=== PATIENT | male | born 1985 | race Caucasian/White ===

== ENCOUNTER 2020-11-22 22:53 | Emergency (ER) | payer OTHER ==
[~2020-11-22] VITALS: Ht 160 cm; Wt 57.2 kg
[2020-11-22 22:55] VITALS: BP 104/68
--- NOTE | 2020-11-22 22:55 | NUR ---
DINORAH UMAÑA TAKEN TO BED #11
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
--- NOTE | 2020-11-22 23:19 | NUR ---
[facility] AT BEDSIDE.
[2020-11-22] MEDS ORDERED: NACL 0.9% 1,000 ML IV ONE (23:20)
[2020-11-22] MEDS ORDERED: ONDANSETRON 4 MG/2 ML VIAL IVP ONE (23:20)
[2020-11-22] MEDS ORDERED: ONDANSETRON 4 MG/2 ML VIAL ONE (23:20)
[2020-11-22 23:37] LABS: BASOPHILS % (AUTO) 0.6 % (0.0-2.0); EOSINOPHILS # (AUTO) 0.2 K/uL (0-0.4); EOSINOPHILS % (AUTO) 3.2 % (0.0-4.0); HEMATOCRIT 44.9 % (36-52); HEMOGLOBIN 15.1 g/dL (12.0-18.0); LYMPHOCYTES # (AUTO) 2.1 K/uL (2.0-11.5); LYMPHOCYTES % (AUTO) 30.8 % (20.5-51.1); MEAN CORPUSCULAR HEMOGLOBIN 33 pg (27-31); MEAN CORPUSCULAR HGB CONC 34 g/dL (33-37); MEAN CORPUSCULAR VOLUME 96.9 fL (80-94); MONOCYTES # (AUTO) 0.4 K/uL (0.8-1.0); MONOCYTES % (AUTO) 5.7 % (1.7-9.3); NEUTROPHILS # (AUTO) 4.1 K/uL (1.8-7.7); NEUTROPHILS % (AUTO) 59.7 % (42.2-75.2); PLATELET COUNT (AUTO) 258 K/uL (140-450); RED BLOOD CELL COUNT(AUTO) 4.63 MIL/uL (4.20-6.10); RED CELL DISTRIBUTION WIDTH 13.4 % (11.6-13.7); WHITE BLOOD COUNT (AUTO) 6.9 K/uL (4.8-10.8)
--- NOTE | 2020-11-22 23:45 | NUR ---
PD TUTOR AT [facility] DRAWING BLOOD LEVELS WITH PERMISSION FROM PATIENT. PATIENT AROUSBLE TO TOUCH. 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 VSS.
[2020-11-22 23:53] LABS: ALBUMIN 3.9 g/dL (3.4-5.0); ANION GAP 14.7 (8-16); CARBON DIOXIDE 24.8 mmol/L (21-32); POTASSIUM 3.5 mmol/L (3.5-5.1); TOTAL BILIRUBIN 0.1 mg/dL (0.0-1.0)
--- NOTE | 2020-11-23 00:15 | NUR ---
PT TAKEN TO CT VIA [facility]
[2020-11-23] MEDS ORDERED: ONDANSETRON 4 MG/2 ML VIAL ONE ×2 (00:27→02:10)
[2020-11-23] MEDS ORDERED: ONDANSETRON 4 MG/2 ML VIAL IVP ONE ×2 (00:30→02:10)
--- NOTE | 2020-11-23 00:30 | NUR ---
RECEIVED CALL FROM [facility] STATING PT VOMITTED X1. DR. HERRING NOTIFIED. VERBAL ORDER FOR ZOFRAN 4MG IVP RECEIVED, ORDER CARRIED OUT.
[2020-11-23] MEDS ORDERED: fentaNYL citrate 0.05 MG/ML VIAL IVP ONE ×2 (01:00→02:10)
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
--- NOTE | 2020-11-23 01:53 | NUR ---
EYE PATCH APPILIED TO L EYE FOR PROTECTION. BLEEDING CONTROLLED OF L EYE. PATIENT C-SPINE CLEARED PER ERMD REQUEST. APTIENT REMAINS ON STUDIO OWNER. VSS.
[2020-11-23] MEDS ORDERED: METOCLOPRAMIDE 10 MG/2 ML INJ VIAL ONE (02:09)
[2020-11-23] MEDS ORDERED: METOCLOPRAMIDE 10 MG/2 ML INJ VIAL IVP ONE (02:10)
[2020-11-23] MEDS ORDERED: fentaNYL citrate 0.05 MG/ML VIAL ONE (02:10)
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
[2020-11-23 03:20] VITALS: BP 110/65
--- NOTE | 2020-11-23 03:20 | NUR ---
[facility] AT BEDSIDE FOR MEDICAL TRANSPORT.
== END 2020-11-23 03:20 | disposition short-term general hospital (02) ==
LOC: MED 22:53
DX: S02.832A Fracture of medial orbital wall, left side, initial encounter for closed fracture (principal); S06.9X0A Unspecified intracranial injury without loss of consciousness, initial encounter; S39.91XA Unspecified injury of abdomen, initial encounter; S29.9XXA Unspecified injury of thorax, initial encounter; V49.9XXA Car occupant (driver) (passenger) injured in unspecified traffic accident, initial encounter; Y93.89 Activity, other specified; Y92.89 Other specified places as the place of occurrence of the external cause; Y99.8 Other external cause status
CPT/HCPCS: 36415; 70450; 71260; 72125; 74177; 80053; 85025; 96361; 96374; 96375; 96376; 99291; J2405; J2765; J3010; J7030; Q9967